=== PATIENT | female | born 1970 | race Caucasian/White ===

== ENCOUNTER 2019-05-24 21:46 | Emergency (ER) | payer MEDICAID ==
[~2019-05-24] VITALS: Ht 165.1 cm; Wt 54.4 kg
--- NOTE | 2019-05-24 22:25 | NUR ---
Dr. Benjamin at bedside for MSE
[2019-05-24] MEDS ORDERED: CEFTRIAXONE 1 G VIAL IM ONE (22:30)
[2019-05-24] MEDS ORDERED: CEFTRIAXONE 1 G VIAL ONE (22:31)
--- NOTE | 2019-05-24 22:36 | NUR ---
Patient discharged to home in stable conditon. Written and verbal after care instructions given. Patient verbalizes understanding of instructions. Patient ambulating with steady gait.
[2019-05-24 22:40] VITALS: BP 115/80
== END 2019-05-24 22:36 | disposition home or self-care (01) ==
LOC: ER 21:49
DX: J06.9 Acute upper respiratory infection, unspecified (principal); F17.200 Nicotine dependence, unspecified, uncomplicated
CPT/HCPCS: 96372; 99283; J0696; A4663